=== PATIENT | male | born 1975 | race Caucasian/White ===

== ENCOUNTER 2022-10-29 04:24 | Day surgery (SDC) | payer OTHER ==
[2022-10-22 14:33] VITALS: BMI 29.9
[2022-10-29 11:20] VITALS: RESP 20
[2022-10-29] MEDS ORDERED: MIDAZOLAM HCL 2 MG/2 ML SINGLE DOSE VIAL ONE (15:56)
[2022-10-29 17:58] VITALS: BP 106/64; PULSE 64; TEMP 97.8
== END 2022-10-29 18:00 | disposition home or self-care (01) ==
LOC: JASU-SURG 04:24
PROVIDERS: ATTEND Urology
PROC: 0TF3XZZ Fragmentation in Right Kidney Pelvis, External Approach (ICD-10-PCS; principal; 2022-10-29 15:58)
DX: N20.0 Calculus of kidney (principal)

== ENCOUNTER 2024-07-20 05:23 | Day surgery (SDC) | payer OTHER ==
[2024-07-16 12:45] VITALS: BMI 29.5
[2024-07-20 12:05] VITALS: RESP 18
[2024-07-20] MEDS ORDERED: MIDAZOLAM HCL 2 MG/2 ML SINGLE DOSE VIAL ONE (13:22)
[2024-07-20 14:56] VITALS: BP 142/86; PULSE 60; TEMP 98
== END 2024-07-20 14:45 | disposition home or self-care (01) ==
LOC: JASU-SURG 05:23
PROVIDERS: ATTEND Urology
PROC: 0TF3XZZ Fragmentation in Right Kidney Pelvis, External Approach (ICD-10-PCS; principal; 2024-07-20 14:00)
DX: N20.0 Calculus of kidney (principal)